=== PATIENT | female | born 1940 | race Caucasian/White ===

== ENCOUNTER 2023-04-08 16:05 | Emergency (ER) | payer OTHER, MEDICAID ==
[~2023-04-08] VITALS: Ht 162.6 cm; Wt 61.2 kg
[2023-04-08 16:17] VITALS: BP_SYST 155; PULSE 73; RESP 18; TEMP 97.8; O2SAT 98
[2023-04-08 16:50] LABS: BASOPHILS % (AUTO) 0.3 % (0.0-2.0); EOSINOPHILS # (AUTO) 0.3 K/uL (0.0-0.4); EOSINOPHILS % (AUTO) 2.9 % (0.0-4.0); HEMATOCRIT 30.7 % (36-48); HEMOGLOBIN 10.1 g/dL (12.0-16.0); LYMPHOCYTES # (AUTO) 1.5 K/uL (1.0-5.5); LYMPHOCYTES % (AUTO) 15.5 % (20.5-51.5); MEAN CORPUSCULAR HEMOGLOBIN 29 pg (27-31); MEAN CORPUSCULAR HGB CONC 33 % (32-36); MEAN CORPUSCULAR VOLUME 87 fL (79.0-98.0); MONOCYTES # (AUTO) 0.9 K/uL (0.0-1.0); MONOCYTES % (AUTO) 9.6 % (1.7-9.3); NEUTROPHILS % (AUTO) 71.7 % (40.0-70.0); PLATELET COUNT (AUTO) 241 K/uL (130-430); RED BLOOD CELL COUNT(AUTO) 3.52 MIL/uL (4.2-6.2); RED CELL DISTRIBUTION WIDTH 14.6 % (9.0-15.0); WHITE BLOOD COUNT (AUTO) 9.7 K/uL (4.8-10.8)
[2023-04-08 17:02] LABS: PROTHROMBIN TIME 10.6 SECS (9.5-12.5)
[2023-04-08 17:08] LABS: ALANINE AMINOTRANSFERASE 7 U/L (12-78); ANION GAP 10 (5-15); ASPARTATE AMINOTRANSFERASE 10 U/L (10-37); CARBON DIOXIDE 25 mmol/L (23-29); CHLORIDE 106 mmol/L (98-107); CREATININE 1.03 mg/dL (0.55-1.30); GLUCOSE 103 mg/dL (74-106); POTASSIUM 4.1 mmol/L (3.5-5.1); SODIUM SERUM 141 mmol/L (136-145); TOTAL BILIRUBIN 0.5 mg/dL (0.0-1.0); TOTAL PROTEIN, SERUM 6.8 g/dL (6.4-8.3); UREA NITROGEN, BLOOD 30 mg/dL (8-21)
[2023-04-08 17:10] LABS: BILIRUBIN,DIRECT 0.1 mg/dL (0.0-0.3); CREATINE KINASE, TOTAL 49 U/L (26-192)
[2023-04-08 18:09] LABS: BILIRUBIN,URINE NEGATIVE (NEGATIVE); BLOOD, URINE NEGATIVE (NEGATIVE); CLARITY/URINE CLEAR (CLEAR); COLOR,URINE YELLOW (YELLOW); GLUCOSE,URINE NEGATIVE (NEGATIVE); KETONES,URINE TRACE (NEGATIVE); LEUKOCYTE ESTERASE ,URINE NEGATIVE (NEGATIVE); NITRITE, URINE NEGATIVE (NEGATIVE); PROTEIN URINE NEGATIVE (NEGATIVE)
[2023-04-08 21:02] VITALS: BP_SYST 121; PULSE 64; RESP 16; TEMP 98.2; O2SAT 98
== END 2023-04-08 21:02 | disposition home or self-care (01) ==
LOC: SED 16:05
DX: M25.562 Pain in left knee (principal); R93.0 Abnormal findings on diagnostic imaging of skull and head, not elsewhere classified; Z91.013 Allergy to seafood; Z79.899 Other long term (current) drug therapy
CPT/HCPCS: 36415; 70450-TC; 71045; 73560; 80048; 80076; 81001; 81003; 82550; 83605; 84484; 85025; 85610; 85730; 93005; 99285

== ENCOUNTER 2023-06-27 18:32 | Emergency (ER) | payer OTHER, MEDICAID ==
[~2023-06-27] VITALS: Ht 154.9 cm; Wt 49.9 kg
[2023-06-27 20:24] VITALS: BP_SYST 145; PULSE 73; RESP 20; TEMP 97.7; O2SAT 97
[2023-06-27 21:35] VITALS: BP_SYST 154; PULSE 75; RESP 18; TEMP 98; O2SAT 98
== END 2023-06-27 21:35 | disposition home or self-care (01) ==
LOC: SED 18:32
DX: S16.1XXA Strain of muscle, fascia and tendon at neck level, initial encounter (principal); S00.93XA Contusion of unspecified part of head, initial encounter; Z91.013 Allergy to seafood; W18.39XA Other fall on same level, initial encounter; Y93.89 Activity, other specified; Y92.89 Other specified places as the place of occurrence of the external cause; Y99.8 Other external cause status
CPT/HCPCS: 70450-TC; 72125-TC; 99284

== ENCOUNTER 2023-08-14 08:47 | Emergency (ER) | payer OTHER ==
[~2023-08-14] VITALS: Ht 157.5 cm; Wt 54.4 kg
[2023-08-14 08:50] VITALS: BP_SYST 56; RESP 10; TEMP 97.2
[2023-08-14] MEDS ORDERED: ETOMIDATE 20 MG/ 10 ML VIAL (AMIDATE) ONE (09:00)
[2023-08-14] MEDS: NS 1000 ML IV.SOLN IV ONE (09:13)
[2023-08-14] MEDS ORDERED: DEXTROSE 50% JECT 50 ML DISP.SYRIN ONE (09:18)
[2023-08-14] MEDS: DEXTROSE 50% JECT 50 ML DISP.SYRIN IVP ONE (09:32)
[2023-08-14] MEDS ORDERED: MIDAZOLAM HCL 5 MG/5 ML VIAL IVP ONE (09:45)
[2023-08-14] MEDS ORDERED: MIDAZOLAM HCL 2 MG/2 ML VIAL (VERSED) ONE (09:47)
[2023-08-14] MEDS ORDERED: NOREPINEPHRINE 4 MG/4 ML VIAL IV ONE ×2 (09:59)
[2023-08-14 10:03] LABS: BASOPHILS % (AUTO) 0.3 % (0.0-2.0); EOSINOPHILS % (AUTO) 0.5 % (0.0-4.0); HEMATOCRIT 35.9 % (36-48); HEMOGLOBIN 10.6 g/dL (12.0-16.0); LYMPHOCYTES # (AUTO) 2.7 K/uL (1.0-5.5); LYMPHOCYTES % (AUTO) 40.4 % (20.5-51.5); MEAN CORPUSCULAR HEMOGLOBIN 28 pg (27-31); MEAN CORPUSCULAR HGB CONC 30 % (32-36); MEAN CORPUSCULAR VOLUME 94 fL (79.0-98.0); MONOCYTES # (AUTO) 0.2 K/uL (0.0-1.0); MONOCYTES % (AUTO) 2.4 % (1.7-9.3); NEUTROPHILS # (AUTO) 3.8 K/uL (1.8-7.7); NEUTROPHILS % (AUTO) 56.4 % (40.0-70.0); PLATELET COUNT (AUTO) 193 K/uL (130-430); RED BLOOD CELL COUNT(AUTO) 3.81 MIL/uL (4.2-6.2); RED CELL DISTRIBUTION WIDTH 16.6 % (9.0-15.0); WHITE BLOOD COUNT (AUTO) 6.8 K/uL (4.8-10.8)
[2023-08-14 10:09] LABS: BLOOD GAS BASE EXCESS -20.1 mmol/L (-3.0-3.0); BLOOD GAS PCO2 45.3 mmHg (35.0-45.0); BLOOD GAS PO2 136.3 mmHg (75.0-100.0)
[2023-08-14] MEDS: NOREPINEPHRINE BITARTRATE 4 MG in NS 246 ML IV ONE (10:12)
[2023-08-14] MEDS: MIDAZOLAM HCL 5 MG/5 ML VIAL IVP ONE (10:13)
[2023-08-14 10:15] LABS: BLOOD GAS PH 6.989 (7.350-7.450)
[2023-08-14 10:16] LABS: BLOOD GAS HCO3 10.6 mmol/L (21.0-27.0)
[2023-08-14 10:17] LABS: INR 1.3 (0.8-1.2); PROTHROMBIN TIME 13.2 SECS (9.5-12.5)
[2023-08-14 10:29] LABS: ALANINE AMINOTRANSFERASE 23 U/L (12-78); ANION GAP 20 (5-15); ASPARTATE AMINOTRANSFERASE 126 U/L (10-37); CALCIUM 8.1 mg/dL (8.4-11.0); CARBON DIOXIDE 14 mmol/L (23-29); CHLORIDE 110 mmol/L (98-107); CREATININE 2.88 mg/dL (0.55-1.30); GLUCOSE 207 mg/dL (74-106); POTASSIUM 4.2 mmol/L (3.5-5.1); SODIUM SERUM 144 mmol/L (136-145); TOTAL BILIRUBIN 1.1 mg/dL (0.0-1.0); TOTAL PROTEIN, SERUM 5.1 g/dL (6.4-8.3); UREA NITROGEN, BLOOD 32 mg/dL (8-21)
[2023-08-14 10:31] LABS: BILIRUBIN,DIRECT 0.4 mg/dL (0.0-0.3)
[2023-08-14] MEDS: PIPERACILLIN/TAZO 3.375 GM in NS 50 ML IV ONE (11:00)
[2023-08-14 13:02] VITALS: BP_SYST 124; PULSE 58; RESP 10; TEMP 97.2; O2SAT 96
== END 2023-08-14 11:50 ==
LOC: SED 08:47
DX: I46.9 Cardiac arrest, cause unspecified (principal); E86.0 Dehydration; E87.20 Acidosis, unspecified; K92.2 Gastrointestinal hemorrhage, unspecified; R65.21 Severe sepsis with septic shock; R79.89 Other specified abnormal findings of blood chemistry; Z91.013 Allergy to seafood; Z79.899 Other long term (current) drug therapy
CPT/HCPCS: 99291; 80076; 80048; 85025; 85610; 85730; 87040; 84484; 36415; 71045; 36600; 82803; 83605; 94760; J3465; J0330; 86920; J2250; J3490